=== PATIENT | female | born 1980 ===

== ENCOUNTER → 2020-03-19 | Outpatient (CLI) | payer OTHER | END | disposition home or self-care (01) | LOC: PRENATAL 08:04 | PROVIDERS: ATTEND Obstetrics & Gynecology Maternal & Fetal Medicine | DX: O26.851 Spotting complicating pregnancy, first trimester (principal); O36.80X1 Pregnancy with inconclusive fetal viability, fetus 1; Z36.89 Encounter for other specified antenatal screening; Z3A.09 9 weeks gestation of pregnancy ==

== ENCOUNTER 2020-03-23 09:23 | Day surgery (SDC) | payer OTHER | END 2020-03-23 18:00 | disposition home or self-care (01) | LOC: CIR.AMB 09:23 | PROVIDERS: ATTEND Specialist | DX: O02.1 Missed abortion (principal); Z20.828 Contact with and (suspected) exposure to other viral communicable diseases ==